=== PATIENT | female | born 1940 | race Caucasian/White ===

== ENCOUNTER 2017-05-13 07:49 | Day surgery (SDC) | payer MEDICARE ==
[~2017-05-13] VITALS: Ht 171.4 cm; Wt 38.2 kg
[~2017-05-13 07:49] MED LIST: APIX2.5T PO; CARB1TAB2 PO; HYDR-3240 PO; IBAN150T PO; IBUP200T48 PO; IPRA0.2S35 INH; OMEP-110 PO; OXYB10TA PO; PARO10TA3 PO; SENN8.6T4 PO; VIT1TABL67 PO
[2017-05-13] MEDS ORDERED: ALPR0.25 PO (09:24)
[2017-05-13] MEDS ORDERED: GABA-826 PO (09:24)
[2017-05-13] MEDS ORDERED: DENO60DI SQ (09:24)
[2017-05-13] MEDS ORDERED: LACTATED RINGERS 1,000 ML IV SCH ×2 (09:25→10:00)
[2017-05-13 09:26] VITALS: BP 115/71
[2017-05-13] MEDS ORDERED: PLEASE ENTER HEIGHT AND WEIGHT MC SCH (09:30)
[2017-05-13] MEDS ORDERED: ONABOTULINUMTOXINA 100 UNITS IM ONE (10:00)
[2017-05-13] MEDS ORDERED: PROPOFOL 10 MG/ML, 20ML ONE (10:33)
[2017-05-13] MEDS ORDERED: hydrALAzine 20 MG/ML, 1ML ONE (11:51)
[2017-05-13] MEDS: hydrALAzine 20 MG/ML, 1ML IV PRN ×2 (11:55→12:32)
== END 2017-05-13 15:30 ==
LOC: OUT 07:49
DX: K22.0 Achalasia of cardia (principal); G20 Parkinson's disease; D64.9 Anemia, unspecified; E46 Unspecified protein-calorie malnutrition; Z98.890 Other specified postprocedural states; Z96.641 Presence of right artificial hip joint
CPT/HCPCS: 43243; 93005; J0360; J0585; J7120; J2704